=== PATIENT | male | born 1970 | race African-American/Black ===

== ENCOUNTER 2016-08-14 17:28 | Emergency (ER) | payer OTHER ==
[2016-08-14 17:38] VITALS: BP 130/76; PULSE 88; RESP 20; TEMP 98.7
[2016-08-14] MEDS ORDERED: ORPHENADRINE 30 MG/ML 2 ML VIAL IM STA (18:03)
[2016-08-14] MEDS ORDERED: KETOROLAC 60 MG/2 ML VIAL IM STA (18:03)
--- NOTE | 2016-08-14 18:15 | ED ---
Back Pain HPI - General Chief Complaint: Back Pain/Injury Stated Complaint: back strain Time Seen by Provider: 08/14/16 17:36 Source: patient, RN notes reviewed, old records reviewed Limitations: no limitations - History of Present Illness Initial Comments: Patient is a 45-year-old male chief complaint of right sided lumbar back strain. Patient reports that this occurred while getting out of his truck today. He states he did not go to work today. He states that he's been taking Motrin Tylenol as well as applying BenGay however does not help. He states that he has never strained his muscle this bad before. He reports that when he got out of the truck he felt a popping sensation. Denies any fever or chills. Denies any saddle anesthesias. Patient can walk. Denies any pain radiate down the leg. Patient states the pain is mainly over the left lumbar paraspinous muscles area reports that he feels better with pressure, it is worse with different movements.Patient denies any recent fever, chills, shortness of breath , chest pain, abdominal pain, nausea vomiting, numbness or tingling, dysuria or hematuria, constipation or diarrhea, headaches or visual changes, or any other current symptoms - Related Data Previous Rx's Medication Instructions Recorded Cyclobenzaprine [Flexeril] 10 mg PO TID #12 tab 08/14/16 Allergies Allergy/AdvReac Type Severity Reaction Status Date / Time No Known Allergies Allergy Verified 08/14/16 17:38 Review of Systems ROS Statement: Those systems with pertinent positive or pertinent negative responses have been documented in the HPI. ROS Other: All systems not noted in ROS Statement are negative. Past Medical History Past Medical History: No Reported History History of Any Multi-Drug Resistant Organisms: None Reported Past Surgical History: No Surgical Hx Reported Past Psychological History: No Psychological Hx Reported Smoking Status: Current every day smoker Past Alcohol Use History: Occasional Past Drug Use History: None Reported General Exam - General Exam Comments Initial Comments: Pleasant 45-year-old male. Patient does not appear to be in any acute distress. Limitations: no limitations General appearance: alert, in no apparent distress Head exam: Present: atraumatic, normocephalic, normal inspection Eye exam: Present: normal appearance, PERRL, EOMI. Absent: scleral icterus, conjunctival injection, periorbital swelling ENT exam: Present: normal exam, mucous membranes moist Neck exam: Present: normal inspection. Absent: tenderness, meningismus, lymphadenopathy Respiratory exam: Present: normal lung sounds bilaterally. Absent: respiratory distress, wheezes, rales, rhonchi, stridor Cardiovascular Exam: Present: regular rate, normal rhythm, normal heart sounds. Absent: systolic murmur, diastolic murmur, rubs, gallop, clicks GI/Abdominal exam: Present: soft, normal bowel sounds. Absent: distended, tenderness, guarding, rebound, rigid Extremities exam: Present: normal inspection, full ROM, normal capillary refill. Absent: tenderness, pedal edema, joint swelling, calf tenderness Back exam: Present: normal inspection, tenderness, paraspinal tenderness (left lumbar paraspinal tenderness. ) Neurological exam: Present: alert, oriented X3, CN II-XII intact Psychiatric exam: Present: normal affect, normal mood Skin exam: Present: warm, dry, intact, normal color. Absent: rash Course Vital Signs 08/14/16 17:35 Temperature 98.7 F Pulse Rate 88 Respiratory 20 Rate Blood Pressure 130/76 O2 Sat by Pulse 97 Oximetry Medical Decision Making - Medical Decision Making She is a pleasant 45-year-old male with chief complaint of left lumbar muscle strain after getting a truck today. Lumbar x-ray obtained. No evidence of any acute abnormalities. Patient is neurologically intact. Normal sensation bilaterally normal capillary refill. Patient is tender over the lumbar left paraspinous muscles. Patient was given IM Toradol and Norflex. Patient was given a note for work today, he can Return tomorrow. Discussed the patient can take muscle relaxers for pain. Patient agreed history plan will comply. Return parameters were discussed. - Radiology Data Radiology results: report reviewed X-ray was reviewed by Dr. Mcdonough and shows normal lumbar spine. No evidence of spondylolisthesis or spondylolysis. Disposition Clinical Impression: Muscle pain, lumbar Disposition: HOME SELF-CARE Condition: Good Instructions: Acute Low Back Pain (ED) Additional Instructions: Patient denies to continue apply heat and ice over the lower back. Patient needs to do passive stretching. Deep tissue massage as well. Take muscle relaxers as needed. Return to the emergency department if any alarming signs or symptoms occur including incontinence, loss of neuromotor function of bilateral legs. Follow-up with her primary care provider if symptoms continue to persist. Prescriptions: Cyclobenzaprine [Flexeril] 10 mg PO TID #12 tab Referrals: None,Stated [Primary Care Provider] - 1-2 days Time of Disposition: 18:21
--- NOTE | 2016-08-14 18:20 | XR ---
EXAMINATION TYPE: XR lumbar spine 2 or 3V DATE OF EXAM: 08/14/2016 6:13 PM COMPARISON: NONE HISTORY: Pain TECHNIQUE: 3 view lumbar spine FINDINGS: Disc heights are preserved. Vertebral body heights are preserved. Alignment is normal. Ther e 5 lumbar-type vertebral bodies. The pedicles are intact. IMPRESSION: 1. Normal three-view lumbar spine
== END 2016-08-14 18:34 | disposition home or self-care (01) ==
LOC: EC 17:28
DX: M79.1 Myalgia (principal); M54.5 Low back pain; F17.200 Nicotine dependence, unspecified, uncomplicated
CPT/HCPCS: 72100; 99284; 96372 ×2; J2360; J1885

== ENCOUNTER 2016-09-24 21:21 | Emergency (ER) | payer OTHER ==
[2016-09-24 21:32] VITALS: BP 124/65; PULSE 86; RESP 18; TEMP 99
--- NOTE | 2016-09-24 22:02 | ED ---
Arrhythmia/Palpitations HPI - General Chief Complaint: Arrhythmia/Palpitations Stated Complaint: Anxiety Time Seen by Provider: 09/24/16 21:34 Source: patient Mode of arrival: ambulatory Limitations: no limitations - History of Present Illness Initial Comments: This is a 45-year-old male with no past medical history presents emergency department for feelings of palpitations and heart racing. He states that he is been under a lot of stress over the last 3 months and has noticed the symptoms starting then. He states that he drank some alcohol and smoked marijuana today and that's when he developed the symptoms. He states he feels like his symptoms come on when he feels anxious. He denies any associated chest pain or shortness of breath. Otherwise feels completely normal. No lightheadedness. He states he's been worked up for this in the past. He states that he feels completely normal now just wants to go home. No other complaints. - Related Data Previous Rx's Medication Instructions Recorded Cyclobenzaprine [Flexeril] 10 mg PO TID #12 tab 08/14/16 Allergies Allergy/AdvReac Type Severity Reaction Status Date / Time No Known Allergies Allergy Verified 09/24/16 21:32 Review of Systems ROS Statement: Those systems with pertinent positive or pertinent negative responses have been documented in the HPI. ROS Other: All systems not noted in ROS Statement are negative. Past Medical History Past Medical History: No Reported History History of Any Multi-Drug Resistant Organisms: None Reported Past Surgical History: No Surgical Hx Reported Past Psychological History: Anxiety Smoking Status: Current every day smoker Past Alcohol Use History: Occasional Past Drug Use History: Marijuana General Exam - General Exam Comments Initial Comments: Const:Awake alert Appears comfortable Head: Normocephalic atraumatic Eyes: no conjunctival injection No scleral icterus EOMI Neck: No JVD Supple Heart: Regular rate rhythm normal S1-S2 no murmurs Lungs: Clear to auscultation bilaterally No wheezing No rales Abdomen: Soft nondistended nontender Extremities: Non edematous DP pulses intact Radial pulses intact Neuro: A&Ox3 No focal neurologic deficits Psych: Appropriate mood and affect Limitations: no limitations Course Vital Signs 09/24/16 21:28 Temperature 99 F Pulse Rate 86 Respiratory 18 Rate Blood Pressure 124/65 O2 Sat by Pulse 100 Oximetry EKG Findings - EKG Comments: EKG Findings:: EKG showing normal sinus rhythm with a rate of 74. No abnormal ST segment changes or T-wave inversions. QTC is 426. Other intervals are normal. No ectopy. Medical Decision Making - Medical Decision Making Is a 45-year-old male presents emergency department for palpitations. EKG was unremarkable. The patient did have a few PVCs on the monitor at that time and that is when he had the symptoms. Patient states that he's had workup for this in the past and is not very further workup done emergency department. I'm going to give him a primary doctor so they did a Holter monitor. He also may benefit from therapy for his anxiety. He can return if he has worsening symptoms or all questions were answered. Disposition Clinical Impression: PVC (premature ventricular contraction), Palpitations Disposition: HOME SELF-CARE Condition: Stable Instructions: Palpitations (ED), Premature Ventricular Contractions (ED) Referrals: None,Stated [Primary Care Provider] - 1-2 days Roberto Cheng MD [STAFF PHYSICIAN] - 1-2 days
== END 2016-09-24 22:05 | disposition home or self-care (01) ==
LOC: EC 21:21
DX: I49.3 Ventricular premature depolarization (principal); F41.9 Anxiety disorder, unspecified; F17.200 Nicotine dependence, unspecified, uncomplicated
CPT/HCPCS: 93005; 99284

== ENCOUNTER 2016-11-11 22:28 | Emergency (ER) | payer OTHER ==
[2016-11-11] MEDS ORDERED: ASPIRIN 81 MG CHEW PO STA (22:56)
[2016-11-11 23:35] LABS: Basophils # (A) 0.1 k/uL (0-0.2); Basophils % (A) 1 %; CH 31.9; CHCM 33.8; Eosinophils # (A) 0.6 k/uL (0-0.7); Eosinophils % (A) 7 %; HCT 46.1 % (39.0-53.0); HDW 2.35; HGB 15.3 gm/dL (13.0-17.5); Luc # (Auto) 0.12; Luc % (Auto) 1; Lymphocytes # (A) 1.8 k/uL (1.0-4.8); Lymphocytes % (A) 21 %; MCH 31.4 pg (25.0-35.0); MCHC 33.1 g/dL (31.0-37.0); MCV 94.9 fL (80.0-100.0); Mean Platelet Volume 8.6; Monocytes # (A) 0.4 k/uL (0-1.0); Monocytes % (A) 5 %; Neutrophils # (A) 5.7 k/uL (1.3-7.7); Neutrophils % (A) 66 %; RBC 4.86 m/uL (4.30-5.90); RDW 14.1 % (11.5-15.5); WBC 8.7 k/uL (3.8-10.6); WBC (Perox) 8.23
[2016-11-11 23:43] LABS: ALT 32 U/L (21-72); AST 23 U/L (17-59); Alkaline Phosphatase 62 U/L (38-126); Anion Gap 10 mmol/L; Blood Urea Nitrogen 15 mg/dL (9-20); Calcium 9.1 mg/dL (8.4-10.2); Carbon Dioxide 25 mmol/L (22-30); Chloride 104 mmol/L (98-107); Glucose 125 mg/dL (74-99); Magnesium 1.6 mg/dL (1.6-2.3); Non-African American GFR(MDRD) >60 (>60 ml/min/1.73 sqM); Potassium 3.6 mmol/L (3.5-5.1); Sodium 139 mmol/L (137-145); Total Bilirubin 0.3 mg/dL (0.2-1.3); Total Protein 6.6 g/dL (6.3-8.2)
[2016-11-11 23:44] LABS: INR 1.1 (<1.2); Partial Thromboplastin Time 23.5 sec (22.0-30.0); Prothrombin Time 10.9 sec (9.0-12.0)
[2016-11-11 23:58] LABS: Creatine Kinase 194 U/L (55-170)
--- NOTE | 2016-11-12 00:09 | XR ---
History: Reason: Chest Pain Exam: XR CXR 2 VIEWS Comparison: 10/23/2015 FINDINGS: The lungs are clear. The cardiac and mediastinal contours are within limits. The visualized osseous structures appear within limits. IMPRESSION: No evidence of acute disease.
[2016-11-12 00:10] LABS: Creatine Kinase MB 0.8 ng/mL (0.0-2.4); Troponin I <0.012 ng/mL (0.000-0.034)
[2016-11-12 00:36] VITALS: BP 117/66; PULSE 89; RESP 18; TEMP 97.9
--- NOTE | 2016-11-12 00:54 | ED ---
General Adult HPI - General Chief complaint: Chest Pain Stated complaint: Anxiety Time Seen by Provider: 11/11/16 22:41 Source: patient, EMS Mode of arrival: EMS - History of Present Illness Initial comments: 46-year-old male patient presents to emergency Department today with complaints of chest tightness, shortness of breath, and a fluttering in his left upper chest. Patient states that symptoms started shortly after smoking marijuana. Patient states that he does generally have chest tightness after smoking marijuana, but the fluttering was new. Patient states that the fluttering feels similar to a muscle spasm, but he can't be sure. Patient does have a history as well as anxiety and states that symptoms are consistent with that. Patient denies any dizziness, blurred vision, double vision, weakness, nausea, vomiting, abdominal pain, constipation, diarrhea, dysuria, hematuria, urinary urgency, urinary frequency. - Related Data Home Medications Medication Instructions Recorded Confirmed No Known Home Medications [No 11/11/16 11/11/16 Known Home Medications] Allergies Allergy/AdvReac Type Severity Reaction Status Date / Time No Known Allergies Allergy Verified 09/24/16 21:32 Review of Systems ROS Statement: Those systems with pertinent positive or pertinent negative responses have been documented in the HPI. ROS Other: All systems not noted in ROS Statement are negative. Past Medical History Past Medical History: No Reported History History of Any Multi-Drug Resistant Organisms: None Reported Past Surgical History: No Surgical Hx Reported Past Psychological History: Anxiety Smoking Status: Current every day smoker Past Alcohol Use History: Occasional Past Drug Use History: Marijuana General Exam General appearance: alert, in no apparent distress Head exam: Present: atraumatic, normocephalic, normal inspection Eye exam: Present: normal appearance, PERRL, EOMI. Absent: scleral icterus, conjunctival injection, periorbital swelling ENT exam: Present: normal exam, mucous membranes moist Neck exam: Present: normal inspection. Absent: tenderness, meningismus, lymphadenopathy Respiratory exam: Present: normal lung sounds bilaterally. Absent: respiratory distress, wheezes, rales, rhonchi, stridor Cardiovascular Exam: Present: regular rate, normal rhythm, normal heart sounds. Absent: systolic murmur, diastolic murmur, rubs, gallop, clicks GI/Abdominal exam: Present: soft, normal bowel sounds. Absent: distended, tenderness, guarding, rebound, rigid Extremities exam: Present: other (Left upper chest wall tenderness) Back exam: Present: normal inspection Neurological exam: Present: alert, oriented X3, CN II-XII intact Psychiatric exam: Present: normal affect, normal mood, anxious Skin exam: Present: warm, dry, intact, normal color. Absent: rash Course Vital Signs 11/11/16 11/11/16 11/12/16 22:41 23:16 00:35 Temperature 98.0 F 97.9 F Pulse Rate 75 18 L 89 Respiratory 16 84 H 18 Rate Blood Pressure 130/65 120/75 117/66 O2 Sat by Pulse 98 98 97 Oximetry EKG Findings - EKG Comments: EKG Findings:: EKG obtained at 2244 reveals normal sinus rhythm with a ventricular rate of 75, MN interval 176, QRS duration 94, QT 384, QTC 428. Medical Decision Making - Medical Decision Making 46-year-old male patient presented to emergency department today for complaints of chest tightness, fluttering in his left upper chest, and some mild shortness of breath. Labs are reviewed and were within normal limits. Chest x-ray was within normal limits. EKG showed normal sinus rhythm. Patient did report a history of similar symptoms in the past after smoking marijuana which he did today as well. Patient also has a history of anxiety with which he has similar symptoms. At this time it is felt that his symptoms are related to accommodation of his anxiety and smoking marijuana. Did recommend cessation of marijuana use. Will discharge patient home with injections. This primary care physician in one to 2 days for recheck. Patient also informed of return parameters, and instructed to return for any new, worsening, or concerning symptoms. - Lab Data Result diagrams: 11/11/16 23:10 11/11/16 23:10 Lab Results 11/11/16 11/11/16 11/11/16 Range/Units 23:10 23:10 23:10 WBC 8.7 (3.8-10.6) k/uL RBC 4.86 (4.30-5.90) m/uL Hgb 15.3 (13.0-17.5) gm/dL Hct 46.1 (39.0-53.0) % MCV 94.9 (80.0-100.0) fL MCH 31.4 (25.0-35.0) pg MCHC 33.1 (31.0-37.0) g/dL RDW 14.1 (11.5-15.5) % Plt Count 184 (150-450) k/uL Neutrophils % 66 % Lymphocytes % 21 % Monocytes % 5 % Eosinophils % 7 % Basophils % 1 % Neutrophils # 5.7 (1.3-7.7) k/uL Lymphocytes # 1.8 (1.0-4.8) k/uL Monocytes # 0.4 (0-1.0) k/uL Eosinophils # 0.6 (0-0.7) k/uL Basophils # 0.1 (0-0.2) k/uL PT (9.0-12.0) sec INR (<1.2) APTT (22.0-30.0) sec Sodium 139 (137-145) mmol/L Potassium 3.6 (3.5-5.1) mmol/L Chloride 104 (98-107) mmol/L Carbon Dioxide 25 (22-30) mmol/L Anion Gap 10 mmol/L BUN 15 (9-20) mg/dL Creatinine 0.69 (0.66-1.25) mg/dL Est GFR (MDRD) Af Amer >60 (>60 ml/min/1.73 sqM) Est GFR (MDRD) Non-Af >60 (>60 ml/min/1.73 sqM) Glucose 125 H (74-99) mg/dL Calcium 9.1 (8.4-10.2) mg/dL Magnesium 1.6 (1.6-2.3) mg/dL Total Bilirubin 0.3 (0.2-1.3) mg/dL AST 23 (17-59) U/L ALT 32 (21-72) U/L Alkaline Phosphatase 62 (38-126) U/L Total Creatine Kinase 194 H (55-170) U/L CK-MB (CK-2) 0.8 (0.0-2.4) ng/mL CK-MB (CK-2) Rel Index 0.4 Troponin I <0.012 (0.000-0.034) ng/mL Total Protein 6.6 (6.3-8.2) g/dL Albumin 3.8 (3.5-5.0) g/dL TSH 3.590 (0.465-4.680) mIU/L 11/11/16 Range/Units 23:10 WBC (3.8-10.6) k/uL RBC (4.30-5.90) m/uL Hgb (13.0-17.5) gm/dL Hct (39.0-53.0) % MCV (80.0-100.0) fL MCH (25.0-35.0) pg MCHC (31.0-37.0) g/dL RDW (11.5-15.5) % Plt Count (150-450) k/uL Neutrophils % % Lymphocytes % % Monocytes % % Eosinophils % % Basophils % % Neutrophils # (1.3-7.7) k/uL Lymphocytes # (1.0-4.8) k/uL Monocytes # (0-1.0) k/uL Eosinophils # (0-0.7) k/uL Basophils # (0-0.2) k/uL PT 10.9 (9.0-12.0) sec INR 1.1 (<1.2) APTT 23.5 (22.0-30.0) sec Sodium (137-145) mmol/L Potassium (3.5-5.1) mmol/L Chloride (98-107) mmol/L Carbon Dioxide (22-30) mmol/L Anion Gap mmol/L BUN (9-20) mg/dL Creatinine (0.66-1.25) mg/dL Est GFR (MDRD) Af Amer (>60 ml/min/1.73 sqM) Est GFR (MDRD) Non-Af (>60 ml/min/1.73 sqM) Glucose (74-99) mg/dL Calcium (8.4-10.2) mg/dL Magnesium (1.6-2.3) mg/dL Total Bilirubin (0.2-1.3) mg/dL AST (17-59) U/L ALT (21-72) U/L Alkaline Phosphatase (38-126) U/L Total Creatine Kinase (55-170) U/L CK-MB (CK-2) (0.0-2.4) ng/mL CK-MB (CK-2) Rel Index Troponin I (0.000-0.034) ng/mL Total Protein (6.3-8.2) g/dL Albumin (3.5-5.0) g/dL TSH (0.465-4.680) mIU/L - Radiology Data Radiology results: report reviewed, image reviewed Two-view x-ray of the chest reveals no acute disease. The lungs are clear. The cardiac and mediastinal contours are within normal limits. The visualized osseous structures appear within normal limits. Dictated by Dr. Santos. Disposition Clinical Impression: Anxiety, Marijuana intoxication Disposition: HOME SELF-CARE Condition: Stable Instructions: Chest Pain (ED), Anxiety (ED) Additional Instructions: Refrain from smoking marijuana. Follow up with primary care physician one to 2 days. Return for any new, worsening, or concerning symptoms. Referrals: None,Stated [Primary Care Provider] - 1-2 days Time of Disposition: 00:48
== END 2016-11-12 01:02 | disposition home or self-care (01) ==
LOC: EC 22:28
DX: F12.120 Cannabis abuse with intoxication, uncomplicated (principal); F41.9 Anxiety disorder, unspecified; F17.200 Nicotine dependence, unspecified, uncomplicated
CPT/HCPCS: 36415; 71020; 80053; 82550; 82553; 83735; 84443; 84484; 85025; 85610; 85730; 93005; 99285

== ENCOUNTER 2017-05-28 18:37 | Emergency (ER) | payer BC, OTHER ==
[2017-05-28 19:30] VITALS: TEMP 98
[2017-05-28 22:06] LABS: Basophils % (A) 1 %; Eosinophils # (A) 0.5 k/uL (0-0.7); Eosinophils % (A) 6 %; HGB 17.5 gm/dL (13.0-17.5); Lymphocytes % (A) 24 %; MCH 30.6 pg (25.0-35.0); MCHC 30.9 g/dL (31.0-37.0); MCV 99.1 fL (80.0-100.0); Monocytes # (A) 0.5 k/uL (0-1.0); Monocytes % (A) 6 %; Neutrophils # (A) 5.1 k/uL (1.3-7.7); Neutrophils % (A) 62 %; Platelet Count 215 k/uL (150-450); RBC 5.74 m/uL (4.30-5.90); RDW 13.3 % (11.5-15.5); WBC 8.2 k/uL (3.8-10.6)
[2017-05-28 22:09] LABS: HCT 56.8 % (39.0-53.0)
[2017-05-28 22:18] VITALS: BP 110/61; PULSE 50; RESP 15
[2017-05-28 22:19] LABS: ALT 39 U/L (21-72); AST 42 U/L (17-59); Albumin 4.4 g/dL (3.5-5.0); Alkaline Phosphatase 77 U/L (38-126); Amylase 83 U/L (30-110); Anion Gap 8 mmol/L; Blood Urea Nitrogen 19 mg/dL (9-20); Calcium 9.7 mg/dL (8.4-10.2); Carbon Dioxide 29 mmol/L (22-30); Chloride 105 mmol/L (98-107); Glucose 93 mg/dL (74-99); Lipase 74 U/L (23-300); Potassium 5.2 mmol/L (3.5-5.1); Sodium 142 mmol/L (137-145); Total Bilirubin 0.7 mg/dL (0.2-1.3)
--- NOTE | 2017-05-28 22:25 | ED ---
Nausea/Vomiting/Diarrhea HPI - General Chief complaint: Nausea/Vomiting/Diarrhea Stated complaint: FLU LIKE SYMPTOMS Time Seen by Provider: 05/28/17 21:35 Source: patient Mode of arrival: ambulatory Limitations: no limitations - History of Present Illness Initial comments: This patient is a 46-year-old man who presents to be evaluated for diarrhea. The patient states that his symptoms had come on this evening at work. He reports eating [employer] for lunch, and then probably little less than an hour after that he started experiencing diarrhea. He states that he believes he had about 4-6 episodes, watery, without any blood. 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 The patient denies any abdominal pain. He has not had fevers or chills. No chest symptoms. No vomiting. He states that he does feel some mild cramps in his thighs he states feels like he had exerted himself. Patient denies any recent antibiotic use. MD complaint: nausea, diarrhea -: hour(s) Description of Diarrhea: water Associated Abdominal Pain: No Improves with: none Worsens with: none Associated Symptoms: myalgias - Related Data Home Medications Medication Instructions Recorded Confirmed No Known Home Medications [No 11/11/16 05/28/17 Known Home Medications] Allergies Allergy/AdvReac Type Severity Reaction Status Date / Time No Known Allergies Allergy Verified 05/28/17 22:20 Review of Systems ROS Statement: Those systems with pertinent positive or pertinent negative responses have been documented in the HPI. ROS Other: All systems not noted in ROS Statement are negative. Constitutional: Denies: fever, chills, weakness Respiratory: Denies: cough, dyspnea Cardiovascular: Denies: chest pain, palpitations, edema Gastrointestinal: Reports: diarrhea. Denies: abdominal pain, nausea, vomiting, melena, hematochezia Genitourinary: Denies: dysuria, hematuria Musculoskeletal: Reports: myalgia Skin: Denies: rash Neurological: Denies: headache, weakness Past Medical History Past Medical History: No Reported History History of Any Multi-Drug Resistant Organisms: None Reported Past Surgical History: Orthopedic Surgery Past Psychological History: Anxiety Smoking Status: Current every day smoker Past Alcohol Use History: Occasional Past Drug Use History: Marijuana General Exam Limitations: no limitations General appearance: alert, in no apparent distress Head exam: Present: atraumatic, normocephalic ENT exam: Present: normal oropharynx Respiratory exam: Present: normal lung sounds bilaterally. Absent: respiratory distress, wheezes, rales, rhonchi, stridor Cardiovascular Exam: Present: regular rate, normal rhythm, normal heart sounds. Absent: systolic murmur, diastolic murmur, rubs, gallop GI/Abdominal exam: Present: soft. Absent: distended, tenderness, guarding, rebound, rigid, mass, pulsatile mass Extremities exam: Present: normal inspection, normal capillary refill. Absent: pedal edema, calf tenderness Back exam: Absent: CVA tenderness (R), CVA tenderness (L) Skin exam: Present: warm, dry, intact, normal color. Absent: rash Course Vital Signs 05/28/17 05/28/17 19:27 22:17 Temperature 98.0 F Pulse Rate 64 50 L Respiratory 20 15 Rate Blood Pressure 116/63 110/61 O2 Sat by Pulse 99 100 Oximetry Medical Decision Making - Lab Data Result diagrams: 05/28/17 21:50 05/28/17 21:50 Lab Results 05/28/17 05/28/17 05/28/17 Range/Units 21:50 21:50 21:50 WBC 8.2 (3.8-10.6) k/uL RBC 5.74 (4.30-5.90) m/uL Hgb 17.5 (13.0-17.5) gm/dL Hct 56.8 H (39.0-53.0) % MCV 99.1 (80.0-100.0) fL MCH 30.6 (25.0-35.0) pg MCHC 30.9 L (31.0-37.0) g/dL RDW 13.3 (11.5-15.5) % Plt Count 215 (150-450) k/uL Neutrophils % 62 % Lymphocytes % 24 % Monocytes % 6 % Eosinophils % 6 % Basophils % 1 % Neutrophils # 5.1 (1.3-7.7) k/uL Lymphocytes # 2.0 (1.0-4.8) k/uL Monocytes # 0.5 (0-1.0) k/uL Eosinophils # 0.5 (0-0.7) k/uL Basophils # 0.0 (0-0.2) k/uL Sodium 142 (137-145) mmol/L Potassium 5.2 H (3.5-5.1) mmol/L Chloride 105 (98-107) mmol/L Carbon Dioxide 29 (22-30) mmol/L Anion Gap 8 mmol/L BUN 19 (9-20) mg/dL Creatinine 0.80 (0.66-1.25) mg/dL Est GFR (MDRD) Af Amer >60 (>60 ml/min/1.73 sqM) Est GFR (MDRD) Non-Af >60 (>60 ml/min/1.73 sqM) Glucose 93 (74-99) mg/dL Calcium 9.7 (8.4-10.2) mg/dL Total Bilirubin 0.7 (0.2-1.3) mg/dL AST 42 (17-59) U/L ALT 39 (21-72) U/L Alkaline Phosphatase 77 (38-126) U/L Total Protein 8.0 (6.3-8.2) g/dL Albumin 4.4 (3.5-5.0) g/dL Amylase 83 (30-110) U/L Lipase 74 (23-300) U/L Influenza Type A RNA Not Detected (Not Detectd) Influenza Type B (PCR) Not Detected (Not Detectd) Disposition Clinical Impression: Diarrhea Disposition: HOME SELF-CARE Condition: Good Instructions: Acute Diarrhea (ED) Referrals: None,Stated [Primary Care Provider] - 1-2 days
[2017-05-28 22:28] LABS: Appearance,Urine Clear (Clear); Bilirubin,Urine Negative (Negative); Blood,Urine Negative (Negative); Color,Urine Yellow; Glucose,Urine (UA) Negative (Negative); Ketones,Urine Negative (Negative); Leukocyte Esterase,Urine Negative (Negative); Nitrite,Urine Negative (Negative); PH, Urine 6.5 (5.0-8.0); Protein,Urine Negative (Negative); Specific Gravity,Urine 1.023 (1.001-1.035)
== END 2017-05-28 22:34 | disposition home or self-care (01) ==
LOC: EC 18:37
DX: R19.7 Diarrhea, unspecified (principal); R11.0 Nausea; M79.1 Myalgia; F17.200 Nicotine dependence, unspecified, uncomplicated
CPT/HCPCS: 36415; 80053; 81003; 82150; 83690; 85025; 87502; 99284

== ENCOUNTER 2017-11-17 11:46 | Emergency (ER) | payer SELFPAY ==
[2017-11-17 11:54] VITALS: BP 115/71; PULSE 72; RESP 16; TEMP 98.3
--- NOTE | 2017-11-17 12:16 | ED ---
Fall HPI - General Chief Complaint: Fall Stated Complaint: Fall Time Seen by Provider: 11/17/17 12:06 Source: patient, RN notes reviewed Mode of arrival: ambulatory Limitations: no limitations - History of Present Illness Initial Comments: This is a 47-year-old male who presents to the emergency department with chief complaint of left rib pain. Patient states that 2 days ago he was jogging down a set of steps, slipped and fell and landed on his left side. Patient complains of pain toposterior and lateral left ribs. He states the pain is made worse with deep breathing and coughing. He states pain is also positional. Denies any other injuries or trauma. Denies chest pain, abdominal pain, nausea or vomiting. - Related Data Home Medications Medication Instructions Recorded Confirmed No Known Home Medications 11/11/16 05/28/17 Allergies Allergy/AdvReac Type Severity Reaction Status Date / Time No Known Allergies Allergy Verified 11/17/17 11:54 Review of Systems ROS Statement: Those systems with pertinent positive or pertinent negative responses have been documented in the HPI. ROS Other: All systems not noted in ROS Statement are negative. Past Medical History Past Medical History: No Reported History History of Any Multi-Drug Resistant Organisms: None Reported Past Surgical History: Orthopedic Surgery Additional Past Surgical History / Comment(s): achilles tendon repair Past Psychological History: Anxiety Smoking Status: Current every day smoker Past Alcohol Use History: Occasional Past Drug Use History: Marijuana General Exam - General Exam Comments Initial Comments: General: Awake and alert, well-developed; in no apparent distress. HEENT: Head atraumatic, normocephalic. Pupils are equal, round and reactive to light. Extraocular movements intact. Oropharynx moist without erythema or exudate. Neck: Supple. Normal ROM. Cardiovascular/Chest: Regular rate and rhythm. No murmurs, rubs or gallops. Chest symmetrical. Tenderness on palpation of in inferior posterior lateral ribs. No obvious deformities. Contusion is noted inferior lateral ribs. Respiratory: Lungs clear to auscultation bilaterally. No wheezes, rales or rhonchi. Normal respiratory effort with no use of accessory muscles. Musculoskeletal: Normal ROM, no tenderness bilateral upper and lower extremities. Ambulating normally. Skin: [place], warm and dry without rashes. Rib contusion as noted above. Neurological: Alert and oriented x3. CN II-XII grossly intact. Speech is fluent and answers are appropriate. No focal neuro deficits. Psychiatric: Normal mood and affect. No overt signs of depression or anxiety noted. Limitations: no limitations Course Vital Signs 11/17/17 11:51 Temperature 98.3 F Pulse Rate 72 Respiratory 16 Rate Blood Pressure 115/71 O2 Sat by Pulse 99 Oximetry Medical Decision Making - Medical Decision Making This is a 47-year-old male who presents to the emergency department with chief complaint of left rib pain. Patient reports falling down a set of steps and landing on his left side 2 days ago. Patient complains of increased pain with deep breathing and coughing. There is tenderness on the patient of the inferior posterolateral left ribs with a contusion noted. Chest x-ray was obtained which revealed no acute abnormalities. Patient likely suffering from a contusion. Recommended rest, ice and ibuprofen or Tylenol as needed. Recommended deep breathing. Patient's vital signs are stable and he is in no acute distress. He will be discharged home at this time. He is in agreement and voices understanding. All questions answered. - Radiology Data Radiology results: report reviewed, image reviewed Chest x-ray impression: No acute process. Disposition Clinical Impression: Rib contusion Disposition: HOME SELF-CARE Condition: Good Instructions: Rib Contusion (ED) Additional Instructions: Please rest, ice and take ibuprofen or Tylenol as needed for pain. Please follow up with primary care provider within 1-2 days. Return to emergency department if symptoms should worsen or any concerns arise. Is patient prescribed a controlled substance at d/c from ED?: No Referrals: None,Stated [Primary Care Provider] - 1-2 days Homero Nettles MD [STAFF PHYSICIAN] - 1-2 days Time of Disposition: 12:41
--- NOTE | 2017-11-17 12:28 | XR ---
EXAMINATION TYPE: XR chest 2V DATE OF EXAM: 11/17/2017 COMPARISON: 720 TECHNIQUE: PA and lateral views submitted. HISTORY: Chest pain FINDINGS: The lungs are clear and there is no pneumothorax, pleural effusion, or focal pneumonia. IMPRESSION: 1. No acute process.
== END 2017-11-17 12:53 | disposition home or self-care (01) ==
LOC: EC 11:46
DX: S20.212A Contusion of left front wall of thorax, initial encounter (principal); F17.200 Nicotine dependence, unspecified, uncomplicated; Z98.890 Other specified postprocedural states; W10.9XXA Fall (on) (from) unspecified stairs and steps, initial encounter; Y93.89 Activity, other specified
CPT/HCPCS: 71046; 99283

== ENCOUNTER 2022-03-06 12:26 | Emergency (ER) | payer BC, OTHER ==
--- NOTE | 2022-03-06 14:00 | ED ---
General Adult HPI - General Chief complaint: ENT Stated complaint: Swollen lymphnodes, facial swelling Time Seen by Provider: 03/06/22 13:43 Source: patient, RN notes reviewed Mode of arrival: ambulatory - History of Present Illness Initial comments: Patient is a 51 year old male presenting to the ER with a chief complaint of facial swelling. This has been going on for about one month and started when he was found to have two dental abscess. Both abscess were located on his bottom jaw and were treated with amoxicillin. He has yet to visit the dentist. Patient admits to trouble swallowing and breathing at times and is concerned. He reports retaining fluid in his legs and feeling cold in his hands. Patient states she is extremely fatigued, states he notices very sensitive to cold of recent. Patient states that he has swelling in his face, throat region and is also noti bailey increasing weight gain. - Related Data Home Medications Medication Instructions Recorded Confirmed No Known Home Medications 11/11/16 05/28/17 Allergies Allergy/AdvReac Type Severity Reaction Status Date / Time No Known Allergies Allergy Verified 03/06/22 13:36 Review of Systems ROS Statement: Those systems with pertinent positive or pertinent negative responses have been documented in the HPI. ROS Other: All systems not noted in ROS Statement are negative. Past Medical History Past Medical History: No Reported History History of Any Multi-Drug Resistant Organisms: None Reported Past Surgical History: Orthopedic Surgery Additional Past Surgical History / Comment(s): achilles tendon repair Past Psychological History: Anxiety Smoking Status: Never smoker Past Alcohol Use History: Occasional Past Drug Use History: Marijuana General Exam Limitations: no limitations General appearance: alert, in no apparent distress Head exam: Present: atraumatic, normocephalic, normal inspection Eye exam: Present: normal appearance, PERRL, EOMI. Absent: scleral icterus, conjunctival injection, periorbital swelling ENT exam: Present: normal exam, normal oropharynx, mucous membranes moist, TM's normal bilaterally Neck exam: Present: lymphadenopathy, thyromegaly. Absent: normal inspection (Diffuse swelling noted) Respiratory exam: Present: normal lung sounds bilaterally. Absent: respiratory distress, wheezes, rales, rhonchi, stridor Cardiovascular Exam: Present: regular rate, normal rhythm, normal heart sounds. Absent: systolic murmur, diastolic murmur, rubs, gallop, clicks GI/Abdominal exam: Present: soft, normal bowel sounds. Absent: distended, tenderness, guarding, rebound, rigid Extremities exam: Present: normal inspection, full ROM, normal capillary refill. Absent: tenderness, pedal edema, joint swelling, calf tenderness Back exam: Present: normal inspection Neurological exam: Present: alert, oriented X3, CN II-XII intact Psychiatric exam: Present: normal affect, normal mood Skin exam: Present: warm, dry, intact, normal color. Absent: rash Course Vital Signs 03/06/22 13:32 Temperature 98.2 F Pulse Rate 76 Respiratory 18 Rate Blood Pressure 143/98 O2 Sat by Pulse 97 Oximetry Medical Decision Making - Medical Decision Making 51-year-old male present emergency department for multitude of symptoms. Patient's found to be severely hypothyroidism with TSH greater than 100, concerns for myxedema coma. Patient was started on IV levothyroxine, patient will be admitted for further levothyroxine, TSH monitored, further workup incl uding follow-up with endocrinology. - Lab Data Result diagrams: 03/06/22 14:07 03/06/22 14:07 Lab Results 03/06/22 03/06/22 Range/Units 14:07 14:07 WBC 10.2 (3.8-10.6) k/uL RBC 5.05 (4.30-5.90) m/uL Hgb 16.2 (13.0-17.5) gm/dL Hct 47.7 (39.0-53.0) % MCV 94.3 (80.0-100.0) fL MCH 32.1 (25.0-35.0) pg MCHC 34.1 (31.0-37.0) g/dL RDW 13.4 (11.5-15.5) % Plt Count 232 (150-450) k/uL MPV 8.6 Neutrophils % 65 % Lymphocytes % 21 % Monocytes % 5 % Eosinophils % 7 % Basophils % 1 % Neutrophils # 6.7 (1.3-7.7) k/uL Lymphocytes # 2.1 (1.0-4.8) k/uL Monocytes # 0.5 (0-1.0) k/uL Eosinophils # 0.7 (0-0.7) k/uL Basophils # 0.1 (0-0.2) k/uL Sodium 139 (137-145) mmol/L Potassium 4.4 (3.5-5.1) mmol/L Chloride 102 (98-107) mmol/L Carbon Dioxide 27 (22-30) mmol/L Anion Gap 10 mmol/L BUN 13 (9-20) mg/dL Creatinine 1.23 (0.66-1.25) mg/dL Est GFR (CKD-EPI)AfAm 80 (>60 ml/min/1.73 sqM) Est GFR (CKD-EPI)NonAf 69 (>60 ml/min/1.73 sqM) Glucose 111 H (74-99) mg/dL Calcium 9.2 (8.4-10.2) mg/dL Total Bilirubin 0.7 (0.2-1.3) mg/dL AST 139 H (17-59) U/L ALT 69 H (4-49) U/L Alkaline Phosphatase 85 (38-126) U/L Total Protein 8.6 H (6.3-8.2) g/dL Albumin 4.7 (3.5-5.0) g/dL TSH >100.000 H (0.465-4.680) mIU/L Free T4 <0.07 L (0.78-2.19) ng/dL Disposition Clinical Impression: Myxedema, Hypothyroidism Disposition: ADMITTED IP TO THIS HOSP Condition: Serious Referrals: None,Stated [Primary Care Provider] - 1-2 days Time of Disposition: 16:09
[2022-03-06 14:15] LABS: Basophils # (A) 0.1 k/uL (0-0.2); Basophils % (A) 1 %; Eosinophils # (A) 0.7 k/uL (0-0.7); Eosinophils % (A) 7 %; HCT 47.7 % (39.0-53.0); HGB 16.2 gm/dL (13.0-17.5); Lymphocytes # (A) 2.1 k/uL (1.0-4.8); Lymphocytes % (A) 21 %; MCH 32.1 pg (25.0-35.0); MCHC 34.1 g/dL (31.0-37.0); MCV 94.3 fL (80.0-100.0); Mean Platelet Volume 8.6; Monocytes # (A) 0.5 k/uL (0-1.0); Monocytes % (A) 5 %; Neutrophils # (A) 6.7 k/uL (1.3-7.7); Neutrophils % (A) 65 %; Platelet Count 232 k/uL (150-450); RBC 5.05 m/uL (4.30-5.90); RDW 13.4 % (11.5-15.5); WBC 10.2 k/uL (3.8-10.6)
[2022-03-06 14:25] LABS: ALT 69 U/L (4-49); AST 139 U/L (17-59); African American GFR (CKD) 80 (>60 ml/min/1.73 sqM); Albumin 4.7 g/dL (3.5-5.0); Alkaline Phosphatase 85 U/L (38-126); Anion Gap 10 mmol/L; Blood Urea Nitrogen 13 mg/dL (9-20); Calcium 9.2 mg/dL (8.4-10.2); Carbon Dioxide 27 mmol/L (22-30); Chloride 102 mmol/L (98-107); Glucose 111 mg/dL (74-99); Non-African American GFR(CKD) 69 (>60 ml/min/1.73 sqM); Potassium 4.4 mmol/L (3.5-5.1); Sodium 139 mmol/L (137-145); Total Bilirubin 0.7 mg/dL (0.2-1.3); Total Protein 8.6 g/dL (6.3-8.2)
[2022-03-06 15:49] LABS: T4, Free (Free Thyroxine) <0.07 ng/dL (0.78-2.19)
[2022-03-06] MEDS ORDERED: LORazepam 0.5 MG TAB PO PRN (16:10)
[2022-03-06] MEDS ORDERED: NALOXONE 0.4 MG/ML 1 ML VIAL IV PRN (16:10)
[2022-03-06] MEDS ORDERED: ACETAMINOPHEN TAB 325 MG TAB PO PRN (16:10)
[2022-03-06] MEDS ORDERED: LEVOTHYROXINE IVP 100 MCG/5 ML VIAL IV SCH (16:15)
[2022-03-06] MEDS ORDERED: SODIUM CHLORIDE 0.9% 1,000 ML IV SCH (16:15)
--- NOTE | 2022-03-06 16:38 | ED ---
Medical Decision Making - Medical Decision Making On further discussion with internal hospitalist felt patient may be the high level of care, needing endocrinology as his TSH is greater 100, T4 less than 0.07 concerning for myxedema coma. His case discussed with Ef[facility] Cho. - Lab Data Result diagrams: 03/06/22 14:07 03/06/22 14:07 Lab Results 03/06/22 03/06/22 Range/Units 14:07 14:07 WBC 10.2 (3.8-10.6) k/uL RBC 5.05 (4.30-5.90) m/uL Hgb 16.2 (13.0-17.5) gm/dL Hct 47.7 (39.0-53.0) % MCV 94.3 (80.0-100.0) fL MCH 32.1 (25.0-35.0) pg MCHC 34.1 (31.0-37.0) g/dL RDW 13.4 (11.5-15.5) % Plt Count 232 (150-450) k/uL MPV 8.6 Neutrophils % 65 % Lymphocytes % 21 % Monocytes % 5 % Eosinophils % 7 % Basophils % 1 % Neutrophils # 6.7 (1.3-7.7) k/uL Lymphocytes # 2.1 (1.0-4.8) k/uL Monocytes # 0.5 (0-1.0) k/uL Eosinophils # 0.7 (0-0.7) k/uL Basophils # 0.1 (0-0.2) k/uL Sodium 139 (137-145) mmol/L Potassium 4.4 (3.5-5.1) mmol/L Chloride 102 (98-107) mmol/L Carbon Dioxide 27 (22-30) mmol/L Anion Gap 10 mmol/L BUN 13 (9-20) mg/dL Creatinine 1.23 (0.66-1.25) mg/dL Est GFR (CKD-EPI)AfAm 80 (>60 ml/min/1.73 sqM) Est GFR (CKD-EPI)NonAf 69 (>60 ml/min/1.73 sqM) Glucose 111 H (74-99) mg/dL Calcium 9.2 (8.4-10.2) mg/dL Total Bilirubin 0.7 (0.2-1.3) mg/dL AST 139 H (17-59) U/L ALT 69 H (4-49) U/L Alkaline Phosphatase 85 (38-126) U/L Total Protein 8.6 H (6.3-8.2) g/dL Albumin 4.7 (3.5-5.0) g/dL TSH >100.000 H (0.465-4.680) mIU/L Free T4 <0.07 L (0.78-2.19) ng/dL Disposition Clinical Impression: Myxedema, Hypothyroidism Disposition: OTHER INSTITUTION NOT DEFINED Condition: Serious - Out of Hospital Transfer - Req. Specs Out of Hospital Transfer - Requested Specifics: Other Emergency Center ([facility])
[2022-03-06 18:01] LABS: Creatine Kinase 5671 U/L (55-170)
[2022-03-06] MEDS ORDERED: SODIUM CHLORIDE 0.9% 500 ML 500 ML IV STA (18:03)
[2022-03-06 18:19] VITALS: BP 142/92; PULSE 78; RESP 18; TEMP 98.8
== END 2022-03-06 18:19 | disposition other institution (70) ==
LOC: EC 12:26 → UNDOADMIN 15:56 → 5NMEDONC 15:56 → EC 18:19
DX: E03.5 Myxedema coma (principal); E03.9 Hypothyroidism, unspecified; F41.9 Anxiety disorder, unspecified; F12.90 Cannabis use, unspecified, uncomplicated
CPT/HCPCS: 36415; 80053; 82533; 82550; 84439; 84443; 84480; 84481; 85025; 93005; 96361; 96374; 99284

== ENCOUNTER 2023-08-10 13:06 | Emergency (ER) | payer OTHER ==
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
[2023-08-10 14:36] LABS: Basophils % (A) 0 %; Eosinophils # (A) 0.5 k/uL (0-0.7); Eosinophils % (A) 3 %; HCT 50.4 % (39.0-53.0); HGB 16.5 gm/dL (13.0-17.5); Lymphocytes # (A) 1.6 k/uL (1.0-4.8); Lymphocytes % (A) 8 %; MCH 31.5 pg (25.0-35.0); MCHC 32.8 g/dL (31.0-37.0); Mean Platelet Volume 8.8; Monocytes % (A) 5 %; Neutrophils # (A) 15.3 k/uL (1.3-7.7); Neutrophils % (A) 82 %; Platelet Count 200 k/uL (150-450); RBC 5.25 m/uL (4.30-5.90); RDW 13.7 % (11.5-15.5); WBC 18.6 k/uL (3.8-10.6)
[2023-08-10 15:03] LABS: ALT 25 U/L (4-49); African American GFR (CKD) >90 (>60 ml/min/1.73 sqM); Anion Gap 7 mmol/L; Blood Urea Nitrogen 17 mg/dL (9-20); Calcium 8.9 mg/dL (8.4-10.2); Carbon Dioxide 24 mmol/L (22-30); Chloride 105 mmol/L (98-107); Glucose 101 mg/dL (74-99); Non-African American GFR(CKD) >90 (>60 ml/min/1.73 sqM); Sodium 136 mmol/L (137-145)
[2023-08-10 15:05] LABS: AST 36 U/L (17-59); Alkaline Phosphatase 63 U/L (38-126); Potassium 4.5 mmol/L (3.5-5.1); Total Protein 7.7 g/dL (6.3-8.2)
[2023-08-10] MEDS: LIDOCAINE 1% INJ 10MG/ML (20 ML MDV) SQ ONE (15:25)
[2023-08-10] MEDS: cefTRIAXone 1,000 MG VIAL (IM USE) IM STA (16:03)
[2023-08-10] MEDS: cefTRIAXone IN SWFI 1,000 MG/10 ML SYRINGE IVP STA (16:04)
[2023-08-10 16:35] VITALS: BP 121/80; PULSE 91; RESP 18; TEMP 98.8
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
== END 2023-08-10 16:10 | disposition home or self-care (01) ==
LOC: EC 13:06
DX: L02.31 Cutaneous abscess of buttock (principal); L03.317 Cellulitis of buttock; F17.200 Nicotine dependence, unspecified, uncomplicated; F12.90 Cannabis use, unspecified, uncomplicated; Z91.013 Allergy to seafood
CPT/HCPCS: 36415; 80053; 83605; 85025; 72170; 10060; 99283; 96374; J2001; J0696